=== PATIENT | male | born 1975 | race Two or more races ===

== ENCOUNTER → 2018-02-26 | Emergency (ER) | payer OTHER ==
[~2018-02-26] VITALS: Ht 193 cm; Wt 107.0 kg
== END | disposition home or self-care (01) ==
LOC: ER 18:36
DX: T40.7X1A Poisoning by cannabis (derivatives), accidental (unintentional), initial encounter (principal); R42 Dizziness and giddiness; Y92.89 Other specified places as the place of occurrence of the external cause